=== PATIENT | male | born 1970 | race Caucasian/White ===

== ENCOUNTER 2021-10-16 07:02 | Day surgery (SDC) | payer BC ==
[~2021-10-16] VITALS: Ht 172.7 cm; Wt 119.2 kg
[2021-10-16] MEDS ORDERED: Prozac20 MG (07:34)
[2021-10-16] MEDS ORDERED: LEVO T (07:35)
[2021-10-16] MEDS ORDERED: HYDROCHLOROTHIA25 MG (07:35)
[2021-10-16] MEDS ORDERED: HYDROCODONE-AC1 EA15 (07:35)
[2021-10-16] MEDS ORDERED: TRAZ100 (07:36)
[2021-10-16] MEDS ORDERED: DEPO-TESTO200 MG/1 M (07:36)
[2021-10-16] MEDS ORDERED: ANAS1 (07:37)
--- NOTE | 2021-10-16 07:55 | NUR ---
10/16/21 0755 Cami Carter FIRST ATTEMPT MISSED BY SRIDHAR IN THE RIGHT HAND. SECOND ATTEMPT MISSED BY RN IN THE RIGHT FOREARM.
--- NOTE | 2021-10-16 09:36 | NUR ---
10/16/21 0935 Carlyn Baker ORAL AIRWAY (#[id number]) AFTER PATIENT SUFFICIENTLY SEDATED. O2 SATS DROP TO 88%/ PLACED PATIENT ON NRB AT 10L OF 02. SATS INCREASE TO 94-98%. FREQUENT JAW THRUST/CHIN LIFT TO KEEP PATIENT FROM OBSTRUCTING. WHEN TECH BEGINS ABDOMINAL PRESSURE, PT COMPLETELY OBSTRUCTS. SECOND NURSE (JOHANNA TOMLINSON) BROUGHT IN TO ASSIST WITH AIRWAY. PT REQUIRED CONSTANT CHIN LIFT THROUGHOUT PROCEDURE TO MAINTAIN AIRWAY. PT WILL REQUIRE ANESTHESIOLOGIST SUPPORT FOR FUTURE PROCEDURES.
[2021-10-21] MEDS ORDERED: Prozac20 MG PO (09:36)
[2021-10-21] MEDS ORDERED: HYDCHL25 PO (09:37)
[2021-10-21] MEDS ORDERED: Norco 5-325 Ta1 EACH PO (09:37)
[2021-10-21] MEDS ORDERED: LEVSOD25 PO (09:37)
[2021-10-21] MEDS ORDERED: TESTOSTERONE200 MG IM (09:37)
[2021-10-21] MEDS ORDERED: TRAZ100 PO (09:38)
== END 2021-10-16 09:30 | disposition home or self-care (01) ==
LOC: ORSCSDS 07:02
PROVIDERS: Internal Medicine Gastroenterology
PROC: 0DBK8ZX Excision of Ascending Colon, Via Natural or Artificial Opening Endoscopic, Diagnostic (ICD-10-PCS; principal; 2021-10-16 08:15)
PROC: 0DBN8ZX Excision of Sigmoid Colon, Via Natural or Artificial Opening Endoscopic, Diagnostic (ICD-10-PCS; principal; 2021-10-16 08:15)
DX: Z12.11 Encounter for screening for malignant neoplasm of colon (principal); D12.2 Benign neoplasm of ascending colon; D12.5 Benign neoplasm of sigmoid colon; K57.30 Diverticulosis of large intestine without perforation or abscess without bleeding; K64.8 Other hemorrhoids; E78.1 Pure hyperglyceridemia; I10 Essential (primary) hypertension; Z79.899 Other long term (current) drug therapy; Z87.891 Personal history of nicotine dependence
CPT/HCPCS: 88305; J2250; J2704; J7120

== ENCOUNTER 2021-11-05 13:27 | Inpatient (IN) | payer BC ==
[~2021-11-05] VITALS: Ht 172.7 cm; Wt 120.2 kg
[~2021-11-05 13:27] MED LIST: ANAS1; ARIMIDEX1 M2 PO; DEPO-TESTO200 MG/1 M; HYDCHL25 PO; HYDROCHLOROTHIA25 MG; HYDROCODONE-AC1 EA15; LEVO T; LEVSOD25 PO; Norco 5-325 Ta1 EACH PO; Prozac20 MG; Prozac20 MG PO; TESTOSTERONE200 MG IM; TRAZ100; TRAZ100 PO
--- NOTE | 2021-11-05 17:16 | NUR ---
11/05/21 1716 Gisel Perez SHOULDER NERVE BLOCK ADMINISTERED BY DR. CARDENAS AT 1550
--- NOTE | 2021-11-05 20:48 | NUR ---
Received patient to unit at 2016. Alert and oriented x'4. Denies pain or discomfort. Sling in place to left arm, aquacel dressing clean dry and intact. Post op vitals initiated. Call ying in reach.
[2021-11-06 03:57] LABS: BASOPHILS ABSOLUTE AUTO 0.02 K/mm3 (0.00-0.23); BASOPHILS PERCENT AUTO 0 % (0-2); EOSINOPHILS PERCENT AUTO 0 % (0-6); Hematocrit 47.7 % (37.0-53.0); Hemoglobin 16.3 g/dL (13.5-17.5); IMMATURE GRAN ABSOLUTE AUTO 0.08 K/mm3 (0.00-0.10); IMMATURE GRAN PERCENT AUTO 1 % (0-1); LYMPHOCYTES ABSOLUTE AUTO 0.83 K/mm3 (0.84-5.20); LYMPHOCYTES PERCENT AUTO 5 % (21-46); MONOCYTES ABSOLUTE AUTO 0.97 K/mm3 (0.16-1.47); MONOCYTES PERCENT AUTO 6 % (4-13); Mean Corpuscular HGB Conc 34.2 g/dL (31.5-36.5); Mean Corpuscular Volume 91 fL (80-100); Mean Platelet Volume 9.9 fL (9.1-12.4); NEUTROPHILS ABSOLUTE AUTO 15.03 K/mm3 (1.96-9.15); NEUTROPHILS PERCENT AUTO 89 % (41-73); Platelet Count 210 K/mm3 (150-400); RDW Coefficient Variation 13.3 % (11.7-14.2); RDW Standard Deviation 44.3 fL (35.1-46.3); Red Blood Cell Count 5.26 M/mm3 (4.30-5.90); White Blood Cell Count 16.93 K/mm3 (4.00-11.30)
[2021-11-06 04:10] LABS: Anion Gap 9 mmol/L (6-16); Blood Urea Nitrogen 19 mg/dL (8-24); Bun/Creatinine Ratio 23.8 (12.0-20.0); CO2, Blood 26 mmol/L (21-32); Calcium, Blood 8.6 mg/dL (8.5-10.1); Chloride, Blood 105 mmol/L (98-108); Glomerular Filtration Rate >60 (60-); Glucose, Blood 138 mg/dL (70-99); Potassium, Blood 4.4 mmol/L (3.5-5.5); Sodium, Blood 140 mmol/L (136-145)
--- NOTE | 2021-11-06 05:35 | NUR ---
ALERT AND ORIENTED X'S 4. DENIES PAIN OR DISCOMFORT AT THIS TIME DUE TO LEFT SHOULDER REMAINS NUMB, ABLE TO WIGGLE FINGERS, CAP REFILL LESS THAN 2 SECONDS. AQUACEL CLEAN DRY AND INTACT. CRYOCUFF IN PLACE. UNABLE TO AMBULATE PATIENT DUE TO GROGGINESS, TOLERATED FLUIDS WELL. SAFETY MAINTAINED, CALL MCLEOD IN REACH.
[2021-11-06] MEDS ORDERED: Percocet 5-3251 EACH PO (08:17)
[2021-11-06] MEDS ORDERED: ASPI81CH PO (08:17)
--- NOTE | 2021-11-06 10:23 | NUR ---
DISCHARGE NOTE: PATIENT AND WERE EDUCATED ON DISCHARGE INSTRUCTIONS. BOTH VERBALIZED UNDERSTANDING OF INSTRUCTIONS. HARD PERSCRIPTIONS ARE IN THE INSTRUCTIONS FOLDER. PAIN IS MANAGED WITH PO MEDS. IV WAS TAKEN OUT AND WAS WNL. PATIENT IS ALERT AND ORIENTED X4. VS ARE WNL AND IS ON RA. HIS LEFT SHOULDER HAS AN AQUACEL THAT IS C/D/I. HE ALSO HAS A SLING THAT IS IN PLACE. DENIES NUMBNESS AND TINGLING. HE IS A SBA. PATIENT IS DRESSED AND HAS HIS ITEMS GATHERED WITHIN THE ROOM. HE IS WALKING OUT WITH HIS TO HER CAR TO TAKE HIM HOME.
== END 2021-11-06 10:00 | disposition home or self-care (01) | DRG 483 ==
LOC: SURS 13:27 → PRE IP 15:00 → SURS 20:28
PROVIDERS: ADMIT Orthopaedic Surgery
PROC: 0RRK0JZ Replacement of Left Shoulder Joint with Synthetic Substitute, Open Approach (ICD-10-PCS; principal; 2021-11-05 15:00)
DX: M19.011 Primary osteoarthritis, right shoulder (principal); F41.9 Anxiety disorder, unspecified; G89.29 Other chronic pain; I10 Essential (primary) hypertension; G47.33 Obstructive sleep apnea (adult) (pediatric); F32.A Depression, unspecified; Z87.891 Personal history of nicotine dependence; Z79.899 Other long term (current) drug therapy; Z28.21 Immunization not carried out because of patient refusal
CPT/HCPCS: 36415; 73030; 80048; 85025; 87081; 97110; 97161; 97165; 97530; 97535; A9270; C1776; J0171; J0690; J0735; J1100; J1885; J2250; J2370; J2405; J2704; J2765; J2795; J3010; J7120